=== PATIENT | male | born 1955 | race Caucasian/White ===

== ENCOUNTER → 2020-03-01 | Emergency (ER) | payer BC, MEDICARE ==
[~2020-03-01] VITALS: Ht 193 cm; Wt 177.3 kg
[~2020-03-01] MED LIST: ALBUTEROL SULFATE HFA 90 MCG/PUFF 8 GM INHALER IH ONE; POTASSIUM CHLORIDE 20 MEQ ER TABLET PO ONE
[2020-03-01 02:28] LABS: COVID AG,FIA SOURCE NASOPHARYNGEAL
[2020-03-01 02:30] LABS: BASOPHILS % (AUTO) 1.1 % (0.0-2.0); EOSINOPHILS % (AUTO) 0.9 % (1.0-6.0); HEMATOCRIT 46.8 % (41-53); HEMOGLOBIN 15.7 g/dL (13.5-17.5); LYMPHOCYTES # (AUTO) 1.6 K/uL (1.0-4.8); LYMPHOCYTES % (AUTO) 12.4 % (22.0-44.0); MEAN CORPUSCULAR HEMOGLOBIN 28.6 pg (26.0-34.0); MEAN CORPUSCULAR HGB CONC 33.5 G/dL (31.0-37.0); MEAN CORPUSCULAR VOLUME 86 fL (80-100); MONOCYTES # (AUTO) 1.4 K/uL (0.1-1.0); MONOCYTES % (AUTO) 11.3 % (2.0-9.0); NEUTROPHILS # (AUTO) 9.5 K/uL (1.8-7.7); NEUTROPHILS % (AUTO) 74.3 % (40.0-70.0); PLATELET COUNT (AUTO) 186 K/uL (150-450); RED BLOOD CELL COUNT(AUTO) 5.47 MIL/uL (4.50-5.90)
[2020-03-01 02:38] LABS: ANION GAP 5 mmol/L (8-16); CALCIUM, TOTAL 9.1 mg/dL (8.8-10.5); CARBON DIOXIDE 30 mmol/L (22-29); CHLORIDE 98 mmol/L (98-107); CREATININE 1.19 mg/dL (0.60-1.30); GLOMERULAR FILTR. RATE CALC > 60 mL/min (>60); GLUCOSE,RANDOM 161 mg/dL (70-110); POTASSIUM 3.4 mmol/L (3.5-5.1); SODIUM SERUM 133 mmol/L (136-145); UREA NITROGEN, BLOOD 19 mg/dL (7-18)
[2020-03-01 02:43] LABS: ALANINE AMINOTRANSFERASE 26 U/L (12-78); ALBUMIN 3.5 g/dL (3.4-5.0); ALKALINE PHOSPHATASE 91 U/L (46-116); ASPARTATE AMINOTRANSFERASE 15 U/L (15-37); BILIRUBIN,TOTAL 1.7 mg/dL (0.1-1.0); TOTAL PROTEIN, SERUM 7.6 g/dL (6.4-8.2)
[2020-03-01 03:00] VITALS: BP 151/90
== END | disposition home or self-care (01) ==
LOC: EMS 01:03
DX: J32.9 Chronic sinusitis, unspecified (principal); E87.6 Hypokalemia; F45.8 Other somatoform disorders; I10 Essential (primary) hypertension; Z90.49 Acquired absence of other specified parts of digestive tract; Z88.0 Allergy status to penicillin; Z20.828 Contact with and (suspected) exposure to other viral communicable diseases
CPT/HCPCS: 87426; 94640; J3535; 36415-L1; 36415-TC; 71045-TC

== ENCOUNTER 2020-04-29 20:58 | Inpatient (IN) | payer MEDICARE, BC ==
[~2020-04-29] VITALS: Ht 195.6 cm; Wt 185.6 kg
[2020-04-29] MEDS ORDERED: PREG25 PO (21:10)
[2020-04-29] MEDS ORDERED: CELE100 PO (21:10)
[2020-04-29] MEDS ORDERED: FLUT1AER IH (21:10)
[2020-04-29] MEDS ORDERED: TAMS-13 PO (21:16)
[2020-04-29] MEDS ORDERED: AMLO-258 PO (21:16)
[2020-04-29] MEDS ORDERED: ATOR20TA86 PO (21:16)
[2020-04-29] MEDS ORDERED: OLME20TA10 PO (21:16)
[2020-04-29 21:43] LABS: APPEARANCE,URINE TURBID (CLEAR); GLUCOSE, URINE (UA) 100 mg/dL (NEGATIVE); KETONES,URINE 40 mg/dL (NEGATIVE); LEUKOCYTE ESTERASE ,URINE LARGE (NEGATIVE); NITRATE,URINE POSITIVE (NEGATIVE); OCCULT BLOOD,URINE LARGE (NEGATIVE); PH,URINE 5.5 (5.0-8.0); PROTEIN,URINE SEE CONFIRM (NEGATIVE)
[2020-04-29 21:46] LABS: BILIRUBIN,URINE PRELIM. POSITIVE (NEGATIVE)
[2020-04-29 21:53] LABS: RBC,URINE Full Field /HPF (0-2); SULFOSALICYLIC ACID,URINE 4+ (Negative)
[2020-04-29 21:54] LABS: BACTERIA,URINE Moderate /HPF (None Seen); WBC,URINE 26-50 /HPF (0-5)
[2020-04-29 21:55] LABS: SQUAMOUS EPITHELIAL CELL,UR Rare /LPF (None Seen)
[2020-04-29 22:20] LABS: BASOPHILS % (AUTO) 0.5 % (0.0-2.0); EOSINOPHILS % (AUTO) 0.9 % (1.0-6.0); HEMATOCRIT 49.4 % (41-53); HEMOGLOBIN 15.8 g/dL (13.5-17.5); LYMPHOCYTES # (AUTO) 1.8 K/uL (1.0-4.8); LYMPHOCYTES % (AUTO) 15.9 % (22.0-44.0); MEAN CORPUSCULAR HEMOGLOBIN 27.6 pg (26.0-34.0); MEAN CORPUSCULAR HGB CONC 31.9 G/dL (31.0-37.0); MEAN CORPUSCULAR VOLUME 87 fL (80-100); MONOCYTES # (AUTO) 1.3 K/uL (0.1-1.0); MONOCYTES % (AUTO) 11.3 % (2.0-9.0); NEUTROPHILS % (AUTO) 71.4 % (40.0-70.0); RED BLOOD CELL COUNT(AUTO) 5.71 MIL/uL (4.50-5.90); RED CELL DISTRIBUTION WIDTH 17.4 % (11.5-14.5)
[2020-04-29 22:29] LABS: CALCIUM, TOTAL 8.9 mg/dL (8.8-10.5); CREATININE 1.22 mg/dL (0.60-1.30); POTASSIUM 3.7 mmol/L (3.5-5.1)
[2020-04-29 22:36] LABS: ALBUMIN 3.6 g/dL (3.4-5.0); BILIRUBIN,TOTAL 1.6 mg/dL (0.1-1.0); TOTAL PROTEIN, SERUM 7.7 g/dL (6.4-8.2)
[2020-04-29 23:08] LABS: PLATELET COUNT (AUTO) 157 K/uL (150-450); PLATELET MORPHOLOGY COMMENT LARGE PLTS PRESENT
[2020-04-29 23:50] LABS: COVID AG,FIA SOURCE NASOPHARYNGEAL
[2020-04-29 23:50] LABS: D-DIMER 0.38 mg/L FEU (0.00-0.50); PROTHROMBIN TIME 10.6 SEC (9.4-11.6)
[2020-04-29 23:56] LABS: ABG A-A DIFF O2 35.8 mmHg (10-20.0); ABG BASE EXCESS 6.8 mmol/L (-2.0-3.0); ABG CARBOXYHEMOGLOBIN 1.1 % (0.0-1.5); ABG HCO3 29.5 mmol/L (22.0-26.0); ABG METHEMOGLOBIN 0.1 % (0.0-1.5); ABG OXYGEN CONTENT 20.5 mL/dL (15.0-23.0); ABG OXYGEN SATURATION 91.7 % (95.0-98.0); ABG OXYHEMOGLOBIN 90.6 % (94.0-100.0); ABG PCO2 46 mmHg (35-45); ABG PH 7.445 (7.35-7.450); ABG TOTAL HEMOGLOBIN 16.1 G/dL (12.0-18.0); PO2, ARTERIAL BG 58.8 mmHg (79.0-87.0); SOURCE, BLOOD GAS ARTERIAL; TEMPERATURE, FAHRENHEIT, BG 98.6 FAHREN (96.0-98.6)
[2020-04-29 23:57] LABS: O2 DEVICE,BLOOD GAS ROOM AIR (ROOM AIR); SITE, BLOOD GAS LFT RADIAL
[2020-04-30] MEDS ORDERED: DOXYCYCLINE HYCLATE 100 MG in DEXTROSE 5%-WATER 100 ML IV ONE (01:00)
[2020-04-30] MEDS ORDERED: CefTRIAXone 1 GM/DEXTROSE 50 ML IV ONE (01:00)
[2020-04-30] MEDS ORDERED: ENOXAPARIN SODIUM 60 MG/0.6 ML PF SYRINGE SQ ONE (01:00)
[2020-04-30] MEDS ORDERED: ENOXAPARIN SODIUM 40 MG/0.4 ML PF SYRINGE SQ ONE (01:15)
[2020-04-30] MEDS ORDERED: DEXAMETHASONE SOD PHOS 4 MG/ML VIAL IVP ONE (02:00)
[2020-04-30] MEDS ORDERED: ACETAMINOPHEN 325 MG TABLET PO PRN ×2 (02:15→09:30)
[2020-04-30] MEDS ORDERED: ONDANSETRON HCL 4 MG/2 ML VIAL IVP PRN (02:15)
[2020-04-30] MEDS ORDERED: 0.9% SODIUM CHLORIDE 10 ML SYRINGE IVP PRN (02:15)
[2020-04-30 03:04] LABS: C-REACTIVE PROTEIN QUANT 0.13 mg/dL (0.00-0.30)
[2020-04-30 03:10] VITALS: BP 141/93
[2020-04-30 08:33] VITALS: BP 132/91
[2020-04-30] MEDS ORDERED: MAGNESIUM HYDROXIDE SUSPENSION 30 ML UDCUP PO PRN (09:30)
[2020-04-30] MEDS: AmLODIPine BESYLATE 5 MG TABLET PO SCH (09:43)
[2020-04-30] MEDS: TAMSULOSIN HCL 0.4 MG CAPSULE PO SCH ×2 (10:25→21:40)
[2020-04-30] MEDS: DOXYCYCLINE HYCLATE 100 MG TABLET PO SCH ×2 (11:34→21:40)
[2020-04-30 12:24] VITALS: BP 134/82
[2020-04-30] MEDS: FLUTICASONE/VILANTEROL 200-25 MCG/INH INHALER [14] IH SCH (14:15)
[2020-04-30] MEDS ORDERED: HEPARIN SODIUM,PORCINE 5,000 UNITS/ML VIAL SQ SCH (16:00)
[2020-04-30 16:36] VITALS: BP 136/76
[2020-04-30 20:44] VITALS: BP 123/75
[2020-04-30] MEDS: DOCUSATE SODIUM 100 MG CAPSULE PO SCH (21:40)
[2020-05-01] MEDS ORDERED: SODIUM CHLORIDE 0.9% 250 ML IV ONE (00:08)
[2020-05-01] MEDS: CefTRIAXone 1 GM/DEXTROSE 50 ML IV SCH (00:22)
[2020-05-01 01:05] VITALS: BP 122/72
[2020-05-01 04:53] VITALS: BP 134/79
[2020-05-01 06:50] LABS: BASOPHILS % (AUTO) 0.3 % (0.0-2.0); EOSINOPHILS % (AUTO) 0.1 % (1.0-6.0); HEMATOCRIT 42.9 % (41-53); LYMPHOCYTES # (AUTO) 1.3 K/uL (1.0-4.8); LYMPHOCYTES % (AUTO) 12.5 % (22.0-44.0); MEAN CORPUSCULAR HEMOGLOBIN 27.9 pg (26.0-34.0); MEAN CORPUSCULAR HGB CONC 32.7 G/dL (31.0-37.0); MEAN CORPUSCULAR VOLUME 85 fL (80-100); MONOCYTES # (AUTO) 1.1 K/uL (0.1-1.0); MONOCYTES % (AUTO) 10.7 % (2.0-9.0); NEUTROPHILS # (AUTO) 7.8 K/uL (1.8-7.7); NEUTROPHILS % (AUTO) 76.4 % (40.0-70.0); PLATELET COUNT (AUTO) 144 K/uL (150-450); RED BLOOD CELL COUNT(AUTO) 5.04 MIL/uL (4.50-5.90); RED CELL DISTRIBUTION WIDTH 17.2 % (11.5-14.5)
[2020-05-01 07:25] VITALS: BP 141/86
[2020-05-01 07:32] LABS: ANION GAP 6 mmol/L (8-16); CALCIUM, TOTAL 8.7 mg/dL (8.8-10.5); CARBON DIOXIDE 31 mmol/L (22-29); CHLORIDE 104 mmol/L (98-107); CREATININE 0.85 mg/dL (0.60-1.30); GLOMERULAR FILTR. RATE CALC > 60 mL/min (>60); GLUCOSE,RANDOM 117 mg/dL (70-110); SODIUM SERUM 141 mmol/L (136-145); UREA NITROGEN, BLOOD 16 mg/dL (7-18)
[2020-05-01 07:50] LABS: PLATELET MORPHOLOGY COMMENT LARGE PLTS PRESENT
[2020-05-01] MEDS: DOCUSATE SODIUM 100 MG CAPSULE PO SCH ×2 (08:37→21:07)
[2020-05-01] MEDS: AmLODIPine BESYLATE 5 MG TABLET PO SCH (08:38)
[2020-05-01] MEDS: FAMOTIDINE 20 MG TABLET PO SCH (08:38)
[2020-05-01] MEDS: TAMSULOSIN HCL 0.4 MG CAPSULE PO SCH ×2 (08:38→21:07)
[2020-05-01] MEDS: DOXYCYCLINE HYCLATE 100 MG TABLET PO SCH ×2 (08:38→21:39)
[2020-05-01] MEDS: FLUTICASONE/VILANTEROL 200-25 MCG/INH INHALER [14] IH SCH (08:42)
[2020-05-01] MEDS ORDERED: POTASSIUM CHL 10 MEQ/WATER 50 ML IV PRN (09:45)
[2020-05-01] MEDS ORDERED: CIPR-278 PO (09:46)
[2020-05-01] MEDS: POTASSIUM CHLORIDE 20 MEQ ER TABLET PO PRN (10:03)
[2020-05-01 11:18] VITALS: BP 137/70
[2020-05-01 15:38] VITALS: BP 139/79
[2020-05-01 20:32] VITALS: BP 135/73
[2020-05-02 00:49] VITALS: BP 139/97
[2020-05-02] MEDS: CefTRIAXone 1 GM/DEXTROSE 50 ML IV SCH (01:34)
[2020-05-02 05:08] VITALS: BP 144/80
[2020-05-02] MEDS ORDERED: SORBITOL IRRIGATION 3,000 ML IRRIG ONE (07:36)
[2020-05-02] MEDS ORDERED: WATER FOR IRRIGATION,STERILE 6,000 ML IRRIG ONE (07:37)
[2020-05-02 07:45] VITALS: BP 133/70
[2020-05-02] MEDS: AmLODIPine BESYLATE 5 MG TABLET PO SCH (09:56)
[2020-05-02] MEDS: FLUTICASONE/VILANTEROL 200-25 MCG/INH INHALER [14] IH SCH (09:56)
[2020-05-02] MEDS: FAMOTIDINE 20 MG TABLET PO SCH (09:56)
[2020-05-02] MEDS: TAMSULOSIN HCL 0.4 MG CAPSULE PO SCH (09:56)
[2020-05-02] MEDS: DOXYCYCLINE HYCLATE 100 MG TABLET PO SCH ×2 (09:56→20:37)
[2020-05-02] MEDS: DOCUSATE SODIUM 100 MG CAPSULE PO SCH ×2 (09:57→20:38)
[2020-05-02] MEDS ORDERED: RINGERS SOLUTION,LACTATED 1,000 ML IV ONE (11:45)
[2020-05-02] MEDS: CIPROFLOXACIN HCL 500 MG TABLET PO SCH ×2 (14:38→20:38)
[2020-05-02] MEDS: PREGABALIN 25 MG CAPSULE PO SCH ×2 (14:38→20:38)
[2020-05-02] MEDS: OLMESARTAN MEDOXOMIL 20 MG TABLET PO SCH (14:38)
[2020-05-02] MEDS: AmLODIPine BESYLATE 10 MG TABLET PO SCH (14:38)
[2020-05-02 14:52] VITALS: BP 150/76
[2020-05-02 20:14] VITALS: BP 131/68
[2020-05-02] MEDS: OxyCODONE HCL/ACETAMINOPHEN 5-325 MG TABLET PO PRN (23:18)
[2020-05-03 00:45] VITALS: BP 134/65
[2020-05-03] MEDS: CefTRIAXone 1 GM/DEXTROSE 50 ML IV SCH (01:08)
[2020-05-03 04:37] VITALS: BP 128/69
[2020-05-03] MEDS ORDERED: PROPOFOL 1% 20 ML VIAL IVP ONE (05:17)
[2020-05-03] MEDS ORDERED: LIDOCAINE/PF 2% 5 ML VIAL IM ONE (05:17)
[2020-05-03] MEDS ORDERED: FentaNYL CITRATE PF 100 MCG/2 ML VIAL IVP ONE (05:17)
[2020-05-03] MEDS ORDERED: ONDANSETRON HCL 4 MG/2 ML VIAL IVP ONE (05:17)
[2020-05-03] MEDS ORDERED: SUGAMMADEX SODIUM 200 MG/2 ML VIAL IVP ONE (05:17)
[2020-05-03] MEDS ORDERED: ROCURONIUM BROMIDE 10 MG/ML 5 ML VIAL IVP ONE (05:17)
[2020-05-03] MEDS ORDERED: ALBUTEROL SULFATE HFA 90 MCG/PUFF 8 GM INHALER IH ONE (05:17)
[2020-05-03 06:45] LABS: BASOPHILS % (AUTO) 0.4 % (0.0-2.0); EOSINOPHILS % (AUTO) 1.2 % (1.0-6.0); HEMATOCRIT 44.6 % (41-53); HEMOGLOBIN 14.5 g/dL (13.5-17.5); LYMPHOCYTES # (AUTO) 1.4 K/uL (1.0-4.8); LYMPHOCYTES % (AUTO) 11.5 % (22.0-44.0); MEAN CORPUSCULAR HGB CONC 32.5 G/dL (31.0-37.0); MEAN CORPUSCULAR VOLUME 86 fL (80-100); MONOCYTES # (AUTO) 1.7 K/uL (0.1-1.0); MONOCYTES % (AUTO) 13.7 % (2.0-9.0); NEUTROPHILS # (AUTO) 8.8 K/uL (1.8-7.7); NEUTROPHILS % (AUTO) 73.2 % (40.0-70.0); PLATELET COUNT (AUTO) 135 K/uL (150-450); RED BLOOD CELL COUNT(AUTO) 5.18 MIL/uL (4.50-5.90)
[2020-05-03 07:08] LABS: ALANINE AMINOTRANSFERASE 27 U/L (12-78); ALBUMIN 2.9 g/dL (3.4-5.0); ALKALINE PHOSPHATASE 86 U/L (46-116); ANION GAP 2 mmol/L (8-16); ASPARTATE AMINOTRANSFERASE 15 U/L (15-37); BILIRUBIN,TOTAL 1.8 mg/dL (0.1-1.0); CALCIUM, TOTAL 8.2 mg/dL (8.8-10.5); CARBON DIOXIDE 36 mmol/L (22-29); CHLORIDE 103 mmol/L (98-107); CREATININE 1.03 mg/dL (0.60-1.30); GLOMERULAR FILTR. RATE CALC > 60 mL/min (>60); GLUCOSE,RANDOM 93 mg/dL (70-110); SODIUM SERUM 141 mmol/L (136-145); TOTAL PROTEIN, SERUM 6.8 g/dL (6.4-8.2); UREA NITROGEN, BLOOD 14 mg/dL (7-18)
[2020-05-03 07:43] LABS: PLATELET MORPHOLOGY COMMENT LARGE PLTS PRESENT
[2020-05-03] MEDS: PREGABALIN 25 MG CAPSULE PO SCH ×2 (07:58→20:00)
[2020-05-03] MEDS: CIPROFLOXACIN HCL 500 MG TABLET PO SCH (07:58)
[2020-05-03] MEDS: AmLODIPine BESYLATE 10 MG TABLET PO SCH (07:58)
[2020-05-03] MEDS: DOXYCYCLINE HYCLATE 100 MG TABLET PO SCH ×2 (07:58→20:00)
[2020-05-03] MEDS: OLMESARTAN MEDOXOMIL 20 MG TABLET PO SCH (07:58)
[2020-05-03] MEDS: FAMOTIDINE 20 MG TABLET PO SCH (07:58)
[2020-05-03] MEDS: ATORVASTATIN CALCIUM 20 MG TABLET PO SCH (07:59)
[2020-05-03] MEDS: POTASSIUM CHLORIDE 20 MEQ ER TABLET PO PRN ×2 (07:59→14:11)
[2020-05-03] MEDS: TAMSULOSIN HCL 0.4 MG CAPSULE PO SCH (07:59)
[2020-05-03] MEDS: CELECOXIB 100 MG CAPSULE PO SCH ×2 (08:00→20:00)
[2020-05-03] MEDS: FLUTICASONE/VILANTEROL 100-25 MCG/INH INHALER [14] IH SCH (08:00)
[2020-05-03] MEDS: DOCUSATE SODIUM 100 MG CAPSULE PO SCH ×2 (08:00→20:00)
[2020-05-03 08:18] VITALS: BP 144/72
[2020-05-03 11:16] VITALS: BP 124/57
[2020-05-03] MEDS ORDERED: SODIUM CHLORIDE 0.9% 100 ML ONE (13:32)
[2020-05-03] MEDS ORDERED: IOVERSOL 350 MG/ML 100 ML VIAL ONE (13:32)
[2020-05-03 15:33] VITALS: BP 122/65
[2020-05-03] MEDS: OxyCODONE HCL/ACETAMINOPHEN 5-325 MG TABLET PO PRN ×2 (16:09→20:13)
[2020-05-03 19:30] VITALS: BP 108/54
[2020-05-04] VITALS (7 sets, daily range): BP systolic 125–150; BP diastolic 53–76
[2020-05-04] MEDS: CefTRIAXone 1 GM/DEXTROSE 50 ML IV SCH (00:46)
[2020-05-04] MEDS: OxyCODONE HCL/ACETAMINOPHEN 5-325 MG TABLET PO PRN ×2 (03:00→20:11)
[2020-05-04] MEDS: FLUTICASONE/VILANTEROL 100-25 MCG/INH INHALER [14] IH SCH (09:33)
[2020-05-04] MEDS: ATORVASTATIN CALCIUM 20 MG TABLET PO SCH (09:33)
[2020-05-04] MEDS: AmLODIPine BESYLATE 10 MG TABLET PO SCH (09:33)
[2020-05-04] MEDS: CELECOXIB 100 MG CAPSULE PO SCH ×2 (09:33→20:10)
[2020-05-04] MEDS: DOXYCYCLINE HYCLATE 100 MG TABLET PO SCH ×2 (09:33→20:10)
[2020-05-04] MEDS: TAMSULOSIN HCL 0.4 MG CAPSULE PO SCH (09:33)
[2020-05-04] MEDS: PREGABALIN 25 MG CAPSULE PO SCH ×2 (09:33→20:09)
[2020-05-04] MEDS: DOCUSATE SODIUM 100 MG CAPSULE PO SCH ×2 (09:33→20:16)
[2020-05-04] MEDS: FAMOTIDINE 20 MG TABLET PO SCH (09:34)
[2020-05-04] MEDS: OLMESARTAN MEDOXOMIL 20 MG TABLET PO SCH (09:35)
[2020-05-04 14:24] LABS: ABG A-A DIFF O2 48.6 mmHg (10-20.0); ABG BASE EXCESS 8.8 mmol/L (-2.0-3.0); ABG CARBOXYHEMOGLOBIN 1.8 % (0.0-1.5); ABG HCO3 30.8 mmol/L (22.0-26.0); ABG METHEMOGLOBIN 0.3 % (0.0-1.5); ABG OXYGEN CONTENT 17.6 mL/dL (15.0-23.0); ABG OXYHEMOGLOBIN 81.8 % (94.0-100.0); ABG PCO2 49 mmHg (35-45); ABG PH 7.444 (7.35-7.450); ABG TOTAL HEMOGLOBIN 15.4 G/dL (12.0-18.0); SOURCE, BLOOD GAS ARTERIAL; TEMPERATURE, FAHRENHEIT, BG 98.1 FAHREN (96.0-98.6)
[2020-05-04 16:51] LABS: ABG OXYGEN SATURATION 83.6 % (95.0-98.0); PO2, ARTERIAL BG 42.6 mmHg (79.0-87.0)
[2020-05-05 00:10] VITALS: BP 130/78
[2020-05-05] MEDS: OxyCODONE HCL/ACETAMINOPHEN 5-325 MG TABLET PO PRN (01:12)
[2020-05-05] MEDS: CefTRIAXone 1 GM/DEXTROSE 50 ML IV SCH (01:12)
[2020-05-05 04:46] VITALS: BP 135/71
[2020-05-05 08:50] VITALS: BP 146/76
[2020-05-05] MEDS: CELECOXIB 100 MG CAPSULE PO SCH (08:51)
[2020-05-05] MEDS: FAMOTIDINE 20 MG TABLET PO SCH (08:51)
[2020-05-05] MEDS: AmLODIPine BESYLATE 10 MG TABLET PO SCH (08:51)
[2020-05-05] MEDS: ATORVASTATIN CALCIUM 20 MG TABLET PO SCH (08:51)
[2020-05-05] MEDS: PREGABALIN 25 MG CAPSULE PO SCH (08:51)
[2020-05-05] MEDS: TAMSULOSIN HCL 0.4 MG CAPSULE PO SCH (08:51)
[2020-05-05] MEDS: DOXYCYCLINE HYCLATE 100 MG TABLET PO SCH (08:51)
[2020-05-05] MEDS: OLMESARTAN MEDOXOMIL 20 MG TABLET PO SCH (08:51)
[2020-05-05] MEDS: DOCUSATE SODIUM 100 MG CAPSULE PO SCH (08:52)
[2020-05-05] MEDS: FLUTICASONE/VILANTEROL 100-25 MCG/INH INHALER [14] IH SCH (08:52)
[2020-05-05 12:05] VITALS: BP 136/69
[2020-05-07 06:22] LABS: SITE, BLOOD GAS RT RADIAL
[2020-05-07 06:23] LABS: O2 DEVICE,BLOOD GAS ROOM AIR (ROOM AIR)
== END 2020-05-05 15:15 | disposition home or self-care (01) | DRG 713 ==
LOC: EMS 20:58 → 5S 04-30 02:00
PROVIDERS: ADMIT Hospitalist; ATTEND Hospitalist
PROC: 0VB08ZZ Excision of Prostate, Via Natural or Artificial Opening Endoscopic (ICD-10-PCS; principal; 2020-05-02 13:30)
DX: N40.1 Benign prostatic hyperplasia with lower urinary tract symptoms (principal); J96.91 Respiratory failure, unspecified with hypoxia; N13.8 Other obstructive and reflux uropathy; Z68.42 Body mass index [BMI] 45.0-49.9, adult; N39.0 Urinary tract infection, site not specified; E44.0 Moderate protein-calorie malnutrition; E87.3 Alkalosis; R31.9 Hematuria, unspecified; I10 Essential (primary) hypertension; E87.6 Hypokalemia; Z90.79 Acquired absence of other genital organ(s); M19.90 Unspecified osteoarthritis, unspecified site; Z90.49 Acquired absence of other specified parts of digestive tract; Z88.0 Allergy status to penicillin; Z20.822 Contact with and (suspected) exposure to COVID-19; G47.33 Obstructive sleep apnea (adult) (pediatric); G62.9 Polyneuropathy, unspecified; Z96.659 Presence of unspecified artificial knee joint; E66.01 Morbid (severe) obesity due to excess calories; N32.89 Other specified disorders of bladder
CPT/HCPCS: 36600; 71260; 76770; 82728; 82805; 83605; 83615; 84132; 85379; 85651; 86140; 87040; 87086; 87426; 93005; 99285; A9575; J0696; J1100; J1650; J2405; J2704; J3010; J3490; J3535; J7050; J7060; 36415-L1; 36415-TC; 71045-TC; U0003